=== PATIENT | female | born 1965 | race African-American/Black ===

== ENCOUNTER 2023-07-16 07:38 | Day surgery (SDC) | payer OTHER ==
[2023-07-10 10:17] VITALS: BMI 33.8
[2023-07-16] MEDS ORDERED: PROPOFOL 40 ML ONE (08:28)
[2023-07-16] MEDS ORDERED: Lidocaine 2% MPF 10 ML AMP (For Epidural Use) ONE (08:28)
[2023-07-16] MEDS ORDERED: PHENYLEPHRINE-NS 100 MCG/ML 10 ML SYRINGE ONE (09:58)
== END 2023-07-16 10:35 | disposition home or self-care (01) ==
LOC: CSHSDC 07:38
PROVIDERS: ATTEND Internal Medicine Gastroenterology
DX: Z12.11 Encounter for screening for malignant neoplasm of colon (principal); K62.1 Rectal polyp; K64.9 Unspecified hemorrhoids; Z88.0 Allergy status to penicillin; Z87.59 Personal history of other complications of pregnancy, childbirth and the puerperium; Z79.899 Other long term (current) drug therapy
CPT/HCPCS: 88305; J2704